=== PATIENT | female | born 1945 | race Caucasian/White ===

== ENCOUNTER → 2016-12-11 | Outpatient (CLI) | payer OTHER | LOC: FIMAGING 07:00 | PROVIDERS: ATTEND Physician Assistant Medical | DX: R55 Syncope and collapse (principal); R56.9 Unspecified convulsions ==

== ENCOUNTER → 2016-12-15 | Outpatient (CLI) | payer OTHER ==
--- NOTE | 2016-12-15 16:48 | CPEEG ---
[f rep st] ELECTROENCEPHALOGRAM DATE OF STUDY: 12/15/2016 INTERPRETATION: Normal EEG during wakefulness and sleep. There were no potentially epileptogenic abnormalities present during the recording. This patient had a probable syncopal episode witnessed by the technologist while electrode hookup was being performed. The initial portion of the EEG showed no post-event slowing or epileptiform discharges as noted above. REPORT: This EEG contains 9-10 Hz alpha to the posterior head regions. There was no abnormal activation at rest, during photic stimulation or hyperventilation. The patient became drowsy and fell asleep during the study. There was no abnormal activation during drowsiness, sleep, or during times of arousal. /[id number]/MODL MTDD
== END ==
LOC: FCPNEURO 13:06
PROVIDERS: ATTEND Physician Assistant Medical
DX: R55 Syncope and collapse (principal)

== ENCOUNTER → 2016-12-17 | Outpatient (CLI) | payer OTHER | LOC: FIMAGING 13:52 | PROVIDERS: ATTEND Family Medicine | DX: I65.23 Occlusion and stenosis of bilateral carotid arteries (principal) ==